=== PATIENT | male | born 1980 | race Caucasian/White ===

== ENCOUNTER → 2017-01-15 | Outpatient (CLI) | payer OTHER ==
[~2017-01-15] MED LIST: ALBU1AER9 INH; ALBU1NEB10 INH; ALUM1SUS PO; AMB5 PO; ARIP1INJ INJ; BACL10TA PO; CALC500T PO; FAMO40TA6 PO; HYDR-4330 PO; LTH300C PO; MELO7.5T5 PO; MOME200A INH; MRLP527 PO; NAPR-1169 PO; OMEP40CA PO; PB30 PO; PRAZ5CAP2 PO; SNG10 PO; SUCR5SUS PO; SUMA1INJ5 IM; SUMA25TA12 PO; TRAZ1TAB5 PO; ZSRP EX
--- NOTE | 2017-01-16 05:38 | PAP/PSG TECHNICIAN REPORT ---
[facility] Hand Model Polysomnogram Report Study name: None Report date: 01/16/2017 Study date: 01/15/2017 Referring Physician: Kingston KING M.D. Name: OLIVERIO HEBERT Interpreting Physician: Scout King M.D. Date of : 1980 Hand Model: Manuel Mccullough RPSGT. Sex: Male Age: 36 StudyType: PSG Weight: 264 lbs 17 inches Height: 36 years, Height 6' 4" Neck Circum: BMI: 32.13 Medications: phenobarbital 64. 8 mg, abilify maintena, advair diskus, meloxicam 15 mg, prilosec 40 mg, pepcid 40 mg, proair hfa 108 (90) base, proventil, singulair 10 mg, desyrel 100 mg, ambien 5 mg, cogentin 0.5 mg, clindamycin hcl 300 mg, carafate 1mg Patient History PATIENT HAS HISTORY OF HEAVY SNORING, WITNESSED APNEAS AND EXCESSIVE DAYTIME SLEEPINESS. HE OCCASIONALLY GETS DRY MOUTH AND MORNING HEADACHES. HE IS HERE TODAY FOR AN EVALUATION FOR PRATEEK. ESS = 15 RM 6 Parameters Monitored NPSG: E1-M2, E2-M1, Fp1-M2, Fp2-M1, F3-M2, F4-M2, F4-M1, C3-M2, C4-M2, C4-M1, O1-M2, O2-M2, O2-M1, T3-M2, T4-M1, P3-M2, P4-M1, CHIN1, CHIN2, HR, EKG, Legs, PFLOW, SNOR, FLOW, CFLOW, Tidal Volume, THOR, ABDO, SpO2, PLTH, CPRESS, ETCO2 Wave, ETCO2, pH Sleep Architecture Sleep Stages Time at Lights Off 9:29:35 PM STAGES Time (min.) TST (%) Time at Lights On 5:20:05 AM Wake 23.0 -- Total Recording Time (TRT) 471.00 min. N1 11.0 2 Total Sleep Period (TSP) 462.5 min. N2 208.5 47 Total Sleep Time (TST) 447.5min. N3 133.0 30 Awake Time 23.5 min. REM 95.0 21 Wake after Sleep Onset 15.0 min. Sleep Efficiency (SE) 95 % Sleep Onset Latency (CUONG) 8.0 min. Number of Stage 1 Shifts None Awakenings 13 Stage Changes 63 Number of REM periods 4 REM 95.0 21 REM Latency 83.5 min. NREM 352.5 79 Body Position Analysis Supine Right Left Side Prone Vertical Total Sleep Time (min.) 190.9 77.5 195.5 273.00 0.0 0.0 Total Sleep Time (%) 39% 17% 44% 61 0% N/A% Total Sleep Time REM (min.) 30.0 27.0 38.0 None 0.0 0.0 Total Sleep Time NREM (min.) 144.5 50.5 157.5 None 0.0 0.0 Intermittent Wake (min.) 16.4 4.2 2.4 None 0.0 0.0 Total Sleep Period (%) 40% None None None None None Arousals Myoclonus (PLM) * Events Count Index Events Count Index Spontaneous 24 3 Events Awake (PLMW) 26 67.8 Respiratory 10 1.3 Events Asleep w/ Arousal (PLMA) 9 1.2 PLM 9 1 Events Asleep w/o Arousal (PLMS) 51 6.8 Snoring 12 2 Total Asleep 60 8.0 Total 55 7 Total 86 11 Respiratory Analysis * CA OA MA CH H RERA Total Count 14 1 0 0 27 1 42 Index 1.9 0.1 0.0 0 3.6 0 5.8 Mean Duration 15.7 12.9 0.0 0.00 17.1 14.4 16.5 Longest Duration 20.2 12.9 0.0 0.00 0.0 14.4 25.0 Respiratory Event Summary Total Supine ~Supine Right Left Prone REM NREM Apneas Count 15 13 2 1 1 N/A 0 15 Index 2.0 4 0 0.8 0.3 N/A 0 3 Hypopneas (4% Desat) Count 27 16 11 5 6 N/A 6 21 Index 3.6 5.5 2 3.9 1.8 N/A 3.8 3.6 Apneas & All Hypopneas Count 42 29 13 6 7 N/A 6 36 Index 5.6 10 3 5 2 N/A 3.8 6.1 Respiratory Events (Electric Deicer Inspector+All Hyp+RERA) Count 42 30 13 6 7 N/A 6 36 Index 5.8 10 3 4.6 2.1 N/A 3.8 6.3 Respiratory Related Arousal Count 10 30 1 1 0 N/A 0 10 Index 1.3 3 0 1 0 N/A 0 2 Snoring Analysis Supine Right Left Prone REM NREM Total Snore duration 5.0 min Snores count 91 105 88 N/A 9 275 284 Snore mean duration 1.0 Sec Snores index 31 81 27 N/A 5.7 46.8 38.1 TST with snoring (%) 1.1% Desaturation Event Summary: Minimum %SpO2 Event Count Mean/Min/Max Duration(sec.) Desaturation Index % Time In Bed > 90 36 26.6 / 8.3 / 57.8 5.0 91.0 86 - 90 2 19.1 / 14.3 / 24.0 2.8 9.0 81 - 85 0 N/A 0.0 0.0 76 - 80 0 N/A 0.0 0.0 71 - 75 0 N/A 0.0 0.0 66 - 70 0 N/A 0.0 0.0 61 - 65 0 N/A 0.0 0.0 56 - 60 0 N/A 0.0 0.0 51 - 55 0 N/A 0.0 0.0 < 50 0 N/A 0.0 0.0 Total REM NREM Awake <50% 0.0 min. 0.0 min. 0.0 min. 0.0 min. 51 - 60% 0.0 min. 0.0 min. 0.0 min. 0.0 min. 61 - 70% 0.0 min. 0.0 min. 0.0 min. 0.0 min. 71 - 80% 0.0 min. 0.0 min. 0.0 min. 0.0 min. 81 - 90% 42.3 min. 13.7 min. 28.5 min. 0.0 min. 91 - 100% 428.0 min. 81.3 min. 324.0 min. 22.7 min. Average 93 92 93 95 Minimum SpO2 85 88 85 90 Desaturation Event Index 4.7 3.8 4.9 5.2 # Desat. Events below 89% 7 3 4 N/A Time(%) with Saturation below 89% 0.9 0.1 0.8 0.0 Time(min.) with Saturation below 89% 4.3 0.7 3.6 0.0 Time (mins) REM (mins) NREM (mins) % of TST SpO2 Below 90% 20 5 N15 4.3 SpO2 Below 88% 4 0 0 0 Heart Rate Analysis Min (bpm) Max (bpm) Average (bpm) Awake 48 86 63 NREM 46 87 56 REM 48 72 61 Overall 46 87 57 Supplemental O2 Values Minimum O2 level: None Value Start Time End Time Hand Model Comments Mr. Hebert slept in the right, left and supine positions. No cardiac arrhythmia noted. Leg movements noted. No bruxism noted. Snoring was noted and scored as a 4 on a scale of 1 through 5. (0=no snoring, 5=snoring loud enough to be heard through a closed door or down the thomas way) Mr. Hebert awoke to use the restroom 0 times during the night. Mr. Hebert stated I did not sleep as well as I do when I am in my own bed. The final report will be interpreted and signed by a sleep physician. The completed physician report will then be placed in the patient medical record. Therapy (cm H2O) 0 TIB (min.) 470.5 TST (min.) 447.5 Sleep Onset (min.) 8.0 REM Onset From Sleep (min.) 83.5 Sleep Efficiency % 95 Wakefulness (%) 5 Wakefulness (min.) 23.5 NREM 1 (%) 2 NREM 1 (min.) 11.0 NREM 2 (%) 47 NREM 2 (min.) 208.5 NREM 3 (%) 30 NREM 3 (min.) 133.0 REM (%) 21 REM (min.) 95.0 # Arousals 55 Arousal Index 7 # Snore 284 Snore Index 38.1 AHI 5.6 AHI Supine 10 AHI Non-Supine 3 NREM AHI 6.1 REM AHI 3.8 RDI 5.8 # Obstructive Apnea 1 # Central Apnea 14 # Mixed Apnea 0 # Hypopneas 27 RERAs 1 Total Respiratory Events 44 Time Below SpO2 89% (min.) 4.3 Mean NREM SpO2 (%) 93 Mean REM SpO2 (%) 92 Mean Sleep SpO2 (%) 93 Min NREM SpO2 (%) 85 Min REM SpO2 (%) 88 Position Supine (min.) 190.9 Position Non-supine (min.) 273.0 LM Index Sleep 8.0 LM Index NREM 10.2 LM Index REM 0.0 Mean Heart Rate (bpm) 57 Min Heart Rate (bpm) 46
--- NOTE | 2017-02-04 17:54 | POLYSOMNOGRAPH REPORT ---
REFERRING PERSON: Dr. Jimmy King. FOOT CASTER: Manuel Mccullough. Mr. Hebert is a 36-year-old male with heavy snoring, witnessed apneas and excessive daytime sleepiness. He occasionally wakes with morning headaches. He is here today to rule out sleep disordered breathing. His [place] sleepiness scale score on the evening of this study is 15. BMI is 32.13. Following the technical and digital specifications of the [place] [employer] (AASM) a standard diagnostic polysomnogram was performed monitoring EEG, EOG, EMG (chin and leg deviations), oxygen saturation, body position, digital video, respiratory effort and airflow.? The sleep Stage and event scoring was based on the AASM Manual for the Scoring of Sleep and Associated Events 2007 edition.? Apneas are defined as a drop in the peak thermal sensor excursion by >90% of baseline for at least 10 seconds.? Hypopneas were scored using the 4% oxygen desaturation rule (4A-Medicare) and a decrease in the nasal pressure excursions by >30% of baseline for at least 10 seconds.? Respiratory effort-related arousal (RERA's) is defined as a sequence of breaths lasting at least 10 seconds characterized by increasing respiratory effort or flattening of the nasal pressure waveform leading to an arousal from sleep when the sequence of breaths does not meet criteria for an apnea or hypopnea.? Apnea Hypopnea index (AHI) is defined as the number of apneas and hypopneas occurring in an hour of sleep.? Respiratory disturbance index (RDI) is defined as the number of apneas, hypopneas, and RERA's occurring in an hour of sleep. Mr. Hebert's total sleep period time was 462.5 minutes. Total sleep time was 447.5 minutes. Sleep efficiency was 95%. Latency to sleep onset was 8 minutes with wake after sleep onset of 15 minutes. Total non-REM sleep time was 352.5 minutes. He spent 2% of that time in N1 sleep, 47% in N2 sleep and 30% in N3 sleep. REM latency was 83.5 minutes. Total REM sleep time was 95 minutes or 21% of total sleep time. There were 55 cortical arousals from sleep. Twelve of these arousals were due to snoring, 9 due to periodic limb movements of sleep, 10 due to respiratory events and 24 were nonspecific. There were 60 periodic limb movements noted on this test. Limb movement index was 8, limb movement with arousal index was 1.2. There were 14 central apneas, 1 obstructive apnea and no mixed apnea on this test. There were 27 hypopneas. Apnea-hypopnea index was 5.6 consistent with mildly severe sleep apnea. The supine AHI was 10, REM AHI was 3.8. Mean saturation was 93% with desaturations to 85%. Saturations were less than 89 for 4.3 minutes of recorded time. There was no cardiac ectopy noted on this study. Heart rates ranged from a low of 46 beats per minute to a high of 87 beats per minute. Loud snoring was noted by the technologist on this test. IMPRESSION AND PLAN: A 36-year-old male with evidence of mild sleep apnea, with both central and obstructive type without nocturnal hypoxemia, bruxism, parasomnia or clinically significant periodic limb movements of sleep. 1. This patient may benefit from positive airway pressure therapy. He could return to the sleep lab for a full night titration and then based on those results be started on equipment at home. A download from his machine can be reviewed in 1 month both to check compliance as well as AHI and further pressure adjustments can occur at that time. This would certainly help his snoring, minimal nocturnal hypoxemia as well as his apnea.
== END | disposition home or self-care (01) ==
LOC: C.NEUR 20:00
PROVIDERS: ATTEND Family Medicine
DX: G47.10 Hypersomnia, unspecified (principal); R06.83 Snoring; G47.33 Obstructive sleep apnea (adult) (pediatric); G47.31 Primary central sleep apnea

== ENCOUNTER 2017-06-02 14:37 | Emergency (ER) | payer OTHER ==
[~2017-06-02] VITALS: Ht 193 cm; Wt 112.7 kg
[~2017-06-02 14:37] MED LIST changes: +TRAZ-120 PO; -TRAZ1TAB5 PO
[2017-06-02 14:44] VITALS: TEMP 36.4; Ht 193 cm; Wt 112.7 kg
[2017-06-02] MEDS ORDERED: PHEN64.8 PO (15:25)
[2017-06-02] MEDS ORDERED: ALBU18002 INH (15:25)
[2017-06-02] MEDS ORDERED: DIVA500T5 PO (15:25)
[2017-06-02] MEDS ORDERED: OMEP40CA41 PO (15:25)
[2017-06-02] MEDS ORDERED: ALBINS/ INH (15:25)
[2017-06-02] MEDS ORDERED: PRAZ2CAP PO (15:25)
[2017-06-02] MEDS ORDERED: MELO15TA4 PO (15:30)
--- NOTE | 2017-06-02 15:39 | DIAGNOSTIC IMAGING REPORT ---
CHEST 2 VIEWS ROUTINE HISTORY: 36 years-old Male cough acute cough for 2 months COMPARISON: Chest radiograph 08/08/2014 TECHNIQUE: PA and lateral views of the chest FINDINGS: Calcified granuloma of the right middle lobe redemonstrated. Cardiomediastinal and hilar silhouettes are within normal limits. No pneumothorax, pleural effusion, focal airspace consolidation or overt pulmonary edema. Bones of the chest appear grossly intact. IMPRESSION: No acute cardiopulmonary process. The above report was generated using voice recognition software. It may contain grammatical, syntax or spelling errors. Electronically signed by: Branden Eng M.D. 06/02/2017 3:38 PM Dictated Date/Time: 06/02/2017 3:37 PM
--- NOTE | 2017-06-02 16:06 | EMERGENCY ROOM VISIT NOTE ---
History First contact with patient: 14:48 (Sowmya Stern PA-C) First contact with patient: 14:48 (Fabian Alston M.D.) Chief Complaint: COUGH Stated Complaint: COUGH Nursing Triage Summary: Pt c/o productive cough x 2 months with brown sputum. Pt denies fever, chills. Pt states that he has been taking ibuprofen for pain. (Sowmya Stern PA-C) History of Present Illness The patient is a 36 year old male who presents to the Emergency Room with complaints of cough for 2 months which is productive at times. He states it is worse during the night. It wakes him up. The patient is asthmatic and is on pro-air andDulera which she has been taking. The patient denies any fever or chills. The patient denies any head congestion, sore throat, ear pain. The patient has allergies to prednisone. The patient states that he called his family doctor, Dr. Elias but couldn't get in until June. He did not try and contact his felter tennis balls at [facility]. He is unsure the name but states it 's whoever replaced Dr. Au. The patient is concerned because he is scheduled for right ankle surgery. (Sowmya Stern PA-C) Review of Systems 10 system review was performed and was negative unless stated otherwise history of present illness. (Sowmya Stern PA-C) Past Medical/Surgical History Medical Problems: (1) Asthma, Unspecified, W (Acute) Exacerbation (2) Bipol I, Most Recent Episode (Or Current) Unspecified (3) Epilepsy Unspec W/O Mention Intractable Epilepsy (4) Esophageal Reflux (5) Gastroparesis (6) Hyperlipidemia Nec/Nos (7) Hypertension Nos (Fabian Alston M.D.) Family History Diabetes mellitus FH: hypertension FHx: cancer FHx: heart disease FHx: kidney disease/stones (Sowmya Stern PA-C) Diabetes mellitus FH: hypertension FHx: cancer FHx: heart disease FHx: kidney disease/stones (Fabian Alston M.D.) Social History Smoking Status: Current Every Day Smoker Alcohol Use: heavy Drug Use: none Marital Status: in relationship Housing Status: lives with family Occupation Status: disabled (Sowmya Stern, [employer]) Current/Historical Medications Scheduled Aldioxa/Cellulose/Chloroxylen (Zeasorb), 1 DOSE EX DIRECTED Aripiprazole (Abilify Maintena), 400 MG INJ Mo Baclofen (Lioresal), 10 MG PO TID Divalproex Sodium (Depakote Delay Rel), 500 MG PO BID Famotidine (Pepcid), 40 MG PO DAILY Meloxicam (Meloxicam), 15 MG PO DAILY Mometasone Furoate-Formoterol (Dulera 200/5 Mcg), 2 PUFFS INH BID Montelukast Sod (Montelukast Sodium), 10 MG PO HS Omeprazole (Prilosec), 40 MG PO BID Phenobarbital (Phenobarbital), 64.8 MG PO HS Prazosin Hcl (Minipress), 2 MG PO HS Sucralfate (Carafate), 1 GM PO BID Trazodone Hcl (Desyrel), 50 MG PO HS Scheduled PRN Albuterol Sulf (Proventil 0.083% 2.5MG/3ML), 2.5 MG INH Q4H PRN for Wheezing Albuterol Sulfate (Proair Respiclick), 2 PUFFS INH BID PRN for ASTHMA SYMPTOMS Alum & Mag Hydrox-Simethicone (Antacid & [place]ig[place] 400-400-40 mg/5Ml), 10-20 ML PO BID PRN for Antacid/Gas Polyethylene (Polyethylene Glycol 3350), 17 GM PO DAILY PRN for Constipation Physical Exam Vital Signs Date Time Temp Pulse Resp B/P (MAP) Pulse Ox O2 Delivery O2 Flow Rate FiO2 06/02/17 15:05 Room Air 06/02/17 14:44 36.4 75 18 150/90 100 Room Air (Fabian Alston M.D.) Physical Exam PHYSICAL EXAM: Vital Signs were reviewed: Reviewed Nurse's notes and agree. Oxygen saturation is 100 % on room air which is normal . GENERAL 36-year-old male appears in no acute distress. MENTAL STATUS: Alert, oriented, coherent. EARS: Canals clear. TMs good light reflex, no erythema or fluid level noted. NOSE: Nasal mucosa with moderate erythema engorgement. PHARYNX: No erythema, no edema noted. No exudate noted. Airway is adequate. NECK: Supple, non-tender. No lymphadenopathy noted. LUNGS: Clear to auscultation without wheezes rales or rhonchi. CARDIAC: Regular rate and rhythm without murmur. SKIN: No rashes noted. (Sowmya Stern PA-C) Medical Decision & Procedures ER Provider Diagnostic Interpretation: CHEST 2 VIEWS ROUTINE HISTORY: 36 years-old Male cough acute cough for 2 months COMPARISON: Chest radiograph 08/08/2014 TECHNIQUE: PA and lateral views of the chest FINDINGS: Calcified granuloma of the right middle lobe redemonstrated. Cardiomediastinal and hilar silhouettes are within normal limits. No pneumothorax, pleural effusion, focal airspace consolidation or overt pulmonary edema. Bones of the chest appear grossly intact. IMPRESSION: No acute cardiopulmonary process. The above report was generated using voice recognition software. It may contain grammatical, syntax or spelling errors. Electronically signed by: Branden Eng M.D. 06/02/2017 3:38 PM (Sowmya Stern PA-C) Diagnostic Interpretation: Radiology results as stated below per my review and radiologist interpretation: CHEST 2 VIEWS ROUTINE HISTORY: 36 years-old Male cough acute cough for 2 months COMPARISON: Chest radiograph 08/08/2014 TECHNIQUE: PA and lateral views of the chest FINDINGS: Calcified granuloma of the right middle lobe redemonstrated. Cardiomediastinal and hilar silhouettes are within normal limits. No pneumothorax, pleural effusion, focal airspace consolidation or overt pulmonary edema. Bones of the chest appear grossly intact. IMPRESSION: No acute cardiopulmonary process. The above report was generated using voice recognition software. It may contain grammatical, syntax or spelling errors. Electronically signed by: Branden Eng M.D. 06/02/2017 3:38 PM Dictated Date/Time: 06/02/2017 3:37 PM (Fabian Alston M.D.) ED Course The patient was evaluated. The patient's EMR medication list were reviewed. The patient also has a history of reflux for which she is on Prilosec and Pepcid. He takes the Pepcid at bedtime. Chest x-ray was ordered and interpreted by the radiologist and myself as above without any acute findings. The patient was informed. The patient was independently evaluated by Dr. alston agree with treatment plan. The patient was discharged home in stable condition. (Sowmya Stern PA-C) Medical Decision Differential diagnosis include uncontrolled asthma, GERD, pneumonia, bronchitis , viral URI (Sowmya Stern PA-C) [place] Drug Monitoring [place] Search Results: patient reviewed within database (Sowmya Stern PA-C) Medication Reconcilliation Current Medication List: was personally reviewed by me (Sowmya Stern PA-C) Blood Pressure Screening Patient's blood pressure: Elevated blood pressure Blood pressure disposition: Elevated BP felt to be situational (Sowmya Stern PA-C) Impression Primary Impression: Uncontrolled intermittent asthma Departure Information Dispostion Home / Self-Care Condition GOOD Referrals Hudson Dominique M.D. (PCP) Forms HOME CARE DOCUMENTATION FORM, IMPORTANT VISIT INFORMATION Patient Instructions Asthma - [facility], [facility] Additional Instructions Continue all medications as prescribed. Call pulmonology at [facility] for follow-up appointment. If you experience any high fevers, chest pain, shortness of breath return to ER immediately.
[2017-06-02 16:56] VITALS: BP 130/74; PULSE 65; O2SAT 97
--- NOTE | 2017-07-16 13:25 | EMERGENCY ROOM VISIT NOTE ---
ED Visit Note First contact with patient: 14:48 Patient Name: Jayjay Hebert Unit Number: [id number] Date of : 1980 Patient Status: Registered Emergency Room Attending Doctor: Fabian Alston M.D. History First contact with patient: 14:48 Chief Complaint: COUGH Stated Complaint: COUGH Nursing Triage Summary: Pt c/o productive cough x 2 months with brown sputum. Pt denies fever, chills. Pt states that he has been taking ibuprofen for pain. History of Present Illness The patient is a 36 year old male who presents to the Emergency Room with complaints of cough for 2 months which is productive at times. He states it is worse during the night. It wakes him up. The patient is asthmatic and is on pro-air andDulera which she has been taking. The patient denies any fever or chills. The patient denies any head congestion, sore throat, ear pain. The patient has allergies to prednisone. The patient states that he called his family doctor, Dr. Elias but couldn't get in until June. He did not try and contact his meteorology instructor at [facility]. He is unsure the name but states it 's whoever replaced Dr. Au. The patient is concerned because he is scheduled for right ankle surgery. Review of Systems 10 system review was performed and was negative unless stated otherwise history of present illness. Past Medical/Surgical History Medical Problems: (1) Asthma, Unspecified, W (Acute) Exacerbation (2) Bipol I, Most Recent Episode (Or Current) Unspecified (3) Epilepsy Unspec W/O Mention Intractable Epilepsy (4) Esophageal Reflux (5) Gastroparesis (6) Hyperlipidemia Nec/Nos (7) Hypertension Nos Family History Diabetes mellitus FH: hypertension FHx: cancer FHx: heart disease FHx: kidney disease/stones Social History Smoking Status: Current Every Day Smoker Alcohol Use: heavy Drug Use: none Marital Status: in relationship Housing Status: lives with family Occupation Status: disabled (Sowmya Stern PA-C) Current/Historical Medications Scheduled Aldioxa/Cellulose/Chloroxylen (Zeasorb), 1 DOSE EX DIRECTED Aripiprazole (Abilify Maintena), 400 MG INJ Mo Baclofen (Lioresal), 10 MG PO TID Divalproex Sodium (Depakote Delay Rel), 500 MG PO BID Famotidine (Pepcid), 40 MG PO DAILY Meloxicam (Meloxicam), 15 MG PO DAILY Mometasone Furoate-Formoterol (Dulera 200/5 Mcg), 2 PUFFS INH BID Montelukast Sod (Montelukast Sodium), 10 MG PO HS Omeprazole (Prilosec), 40 MG PO BID Phenobarbital (Phenobarbital), 64.8 MG PO HS Prazosin Hcl (Minipress), 2 MG PO HS Sucralfate (Carafate), 1 GM PO BID Trazodone Hcl (Desyrel), 50 MG PO HS Scheduled PRN Albuterol Sulf (Proventil 0.083% 2.5MG/3ML), 2.5 MG INH Q4H PRN for Wheezing Albuterol Sulfate (Proair Respiclick), 2 PUFFS INH BID PRN for ASTHMA SYMPTOMS Alum & Mag Hydrox-Simethicone (Antacid & Antigas 400-400-40 mg/5Ml), 10-20 ML PO BID PRN for Antacid/Gas Polyethylene (Polyethylene Glycol 3350), 17 GM PO DAILY PRN for Constipation Physical Exam Vital Signs Date Time Temp Pulse Resp B/P (MAP) Pulse Ox O2 Delivery O2 Flow Rate FiO2 06/02/17 15:05 Room Air 06/02/17 14:44 36.4 75 18 150/90 100 Room Air Physical Exam PHYSICAL EXAM: Vital Signs were reviewed: Reviewed Nurse's notes and agree. Oxygen saturation is 100 % on room air which is normal . GENERAL 36-year-old male appears in no acute distress. MENTAL STATUS: Alert, oriented, coherent. EARS: Canals clear. TMs good light reflex, no erythema or fluid level noted. NOSE: Nasal mucosa with moderate erythema engorgement. PHARYNX: No erythema, no edema noted. No exudate noted. Airway is adequate. NECK: Supple, non-tender. No lymphadenopathy noted. LUNGS: Clear to auscultation without wheezes rales or rhonchi. CARDIAC: Regular rate and rhythm without murmur. SKIN: No rashes noted. Medical Decision & Procedures ER Provider Diagnostic Interpretation: CHEST 2 VIEWS ROUTINE HISTORY: 36 years-old Male cough acute cough for 2 months COMPARISON: Chest radiograph 08/08/2014 TECHNIQUE: PA and lateral views of the chest FINDINGS: Calcified granuloma of the right middle lobe redemonstrated. Cardiomediastinal and hilar silhouettes are within normal limits. No pneumothorax, pleural effusion, focal airspace consolidation or overt pulmonary edema. Bones of the chest appear grossly intact. IMPRESSION: No acute cardiopulmonary process. The above report was generated using voice recognition software. It may contain grammatical, syntax or spelling errors. Electronically signed by: Branden Eng M.D. 06/02/2017 3:38 PM ED Course The patient was evaluated. The patient's EMR medication list were reviewed. The patient also has a history of reflux for which she is on Prilosec and Pepcid. He takes the Pepcid at bedtime. Chest x-ray was ordered and interpreted by the radiologist and myself as above without any acute findings. The patient was informed. The patient was independently evaluated by Dr. alston agree with treatment plan. The patient was discharged home in stable condition. Medical Decision Differential diagnosis include uncontrolled asthma, GERD, pneumonia, bronchitis , viral URI [place] Drug Monitoring Program Search Results: patient reviewed within database Medication Reconcilliation Current Medication List: was personally reviewed by me Blood Pressure Screening Patient's blood pressure: Elevated blood pressure Blood pressure disposition: Elevated BP felt to be situational Impression Primary Impression: Uncontrolled intermittent asthma Departure Information Dispostion Home / Self-Care Condition GOOD Referrals Hudson Dominique M.D. (PCP) Forms HOME CARE DOCUMENTATION FORM, IMPORTANT VISIT INFORMATION Patient Instructions Asthma - [facility], [facility] Additional Instructions Continue all medications as prescribed. Call pulmonology at [facility] for follow-up appointment. If you experience any high fevers, chest pain, shortness of breath return to ER immediately.
== END 2017-06-02 16:45 | disposition home or self-care (01) ==
LOC: C.EDB 14:39 → C.EDC 16:45
DX: J45.20 Mild intermittent asthma, uncomplicated (principal); F31.9 Bipolar disorder, unspecified; G40.909 Epilepsy, unspecified, not intractable, without status epilepticus; K21.9 Gastro-esophageal reflux disease without esophagitis; K31.84 Gastroparesis; E78.5 Hyperlipidemia, unspecified; I10 Essential (primary) hypertension; Z83.3 Family history of diabetes mellitus; Z82.49 Family history of ischemic heart disease and other diseases of the circulatory system; Z80.9 Family history of malignant neoplasm, unspecified; Z84.1 Family history of disorders of kidney and ureter; F17.210 Nicotine dependence, cigarettes, uncomplicated; Z79.899 Other long term (current) drug therapy

== ENCOUNTER → 2017-06-06 | Outpatient (CLI) | payer OTHER ==
[~2017-06-06] MED LIST changes: +ALBINS/ INH; +ALBU18002 INH; -ALBU1AER9 INH; -ALBU1NEB10 INH; -AMB5 PO; -CALC500T PO; +DIVA500T5 PO; -HYDR-4330 PO; -LTH300C PO; +MELO15TA4 PO; -MELO7.5T5 PO; -NAPR-1169 PO; -OMEP40CA PO; +OMEP40CA41 PO; -PB30 PO; +PHEN64.8 PO; +PRAZ2CAP PO; -PRAZ5CAP2 PO; -SUMA1INJ5 IM; -SUMA25TA12 PO
--- NOTE | 2017-06-06 12:36 | DIAGNOSTIC IMAGING REPORT ---
R LOWER EXTREMITY WITHOUT CT DOSE: HISTORY: Pain M25.571 TECHNIQUE: Multiaxial CT images of the right ankle were performed and reformatted in the sagittal and coronal plane without the use of contrast. A dose lowering technique was utilized adhering to the principles of ALARA. COMPARISON: None. FINDINGS: Transaxial images are acquired with multi axial reformatted images. No evidence for acute fracture. Cortical margins are intact.. Minimal osteophytic change anterior superior aspect of the talus. Subtalar joint is intact. No evidence for tarsal correlation. All major soft tissue components are unremarkable. Alignment is anatomic throughout. No abnormal periosteal reaction. Minimal ossification Achilles tendon insertion. IMPRESSION: 1. No acute bony abnormalities appreciated. 2. Subtalar joint is intact with no evidence for tarsal coallition.. 3. No evidence for an acute or healing fracture on this current exam. 4. Mild ossification Achilles tendon insertion. The above report was generated using voice recognition software. It may contain grammatical, syntax or spelling errors. Electronically signed by: Rajendra Stern M.D. 06/06/2017 12:35 PM Dictated Date/Time: 06/06/2017 12:28 PM
== END | disposition home or self-care (01) ==
LOC: C.CTS 12:12
PROVIDERS: ATTEND Orthopaedic Surgery Sports Medicine
DX: M25.571 Pain in right ankle and joints of right foot (principal)